=== PATIENT | male | born 1955 | race Caucasian/White ===

== ENCOUNTER 2018-09-22 07:26 | Emergency (ER) | payer BC ==
[2018-09-22] MEDS ORDERED: ORPHENADRINE CITRATE 60MG/2ML VIAL IM ONE (08:11)
[2018-09-22] MEDS ORDERED: KETOROLAC 30 MG/ML VIAL IM ONE (08:11)
--- NOTE | 2018-09-22 08:59 | Emergency Department Record ---
History of Present Illness - General Chief Complaint: Neck Injury/Pain Stated Complaint: NECK PAIN Time Seen by Provider: 09/22/18 07:51 Source: Patient Mode of Arrival: Ambulatory Limitations: No limitations - History of Present Illness Initial Comments: pt is having neck pain for 3 days. he thinks he might have slept wrong. he is unable to turn, rotate or side bend head Complaint: Neck pain Onset/Timin -: Days(s) Place: Home Severity: Moderate Severity scale (1-10): 10 Quality: Aching Improves With: None Worsens With: None Context: Direct blow - Related Data Previous Rx's Medication Instructions Recorded Cyclobenzaprine HCl [Flexeril] 10 mg PO TID #14 tablet 09/22/18 Hydrocodone/Acetaminophen [[place] 1 each PO Q6HR #10 tablet 09/22/18 5-325 Tablet] Ibuprofen [Motrin 600Mg] 600 mg PO Q6H #20 tablet 09/22/18 Allergies Allergy/AdvReac Type Severity Reaction Status Date / Time lansoprazole Allergy Intermediate RASH Verified 09/22/18 07:33 Travel Screening - Travel/Exposure Within Last 30 Days Have you traveled within the last 30 days?: No - Travel/Exposure Within Last Year Have you traveled outside the [place] in the last year?: No - Additonal Travel Details Have you been exposed to anyone with a communicable illness?: No - Travel Symptoms Symptom Screening: None Review of Systems Reviewed: No additional complaints except as noted below Constitutional: Reports: As per HPI. Denies: Chills, Fever, Malaise, Night sweats, Weakness, Weight change Eyes: Reports: As per HPI. Denies: Eye discharge, Eye pain, Photophobia, Vision change ENT: Reports: As per HPI. Denies: Congestion, Dental pain, Ear pain, Epistaxis, Hearing loss, Throat pain Respiratory: Reports: As per HPI. Denies: Cough, Dyspnea, Hemoptysis, Stridor, Wheezes Cardiovascular: Reports: As per HPI. Denies: Arrhythmia, Chest pain, Dyspnea on exertion, Edema, Murmurs, Orthopnea, Palpitations, Paroxysmal nocturnal dyspnea, Rheumatic Fever, Syncope Endocrine: Reports: As per HPI. Denies: Fatigue, Heat or cold intolerance, Polydipsia, Polyuria Gastrointestinal: Reports: As per HPI. Denies: Abdominal pain, Constipation, Diarrhea, Hematemesis, Hematochezia, Melena, Nausea, Vomiting Genitourinary: Reports: As per HPI. Denies: Dysuria, Frequency, Hematuria, Incontinence, Retention, Testicular pain, Testicular mass, Urgency Musculoskeletal: Reports: As per HPI. Denies: Arthralgia, Back pain, Gout, Joint swelling, Myalgia, Neck pain Skin: Reports: As per HPI. Denies: Bruising, Change in color, Change in hair/nails, Lesions, Pruritus, Rash Neurological: Reports: As per HPI. Denies: Abnormal gait, Confusion, Headache, Numbness, Paresthesias, Seizure, Tingling, Tremors, Vertigo, Weakness Psychiatric: Reports: As per HPI. Denies: Anxiety, Auditory hallucinations, Depression, Homicidal thoughts, Suicidal thoughts, Visual hallucinations Hematological/Lymphatic: Reports: As per HPI. Denies: Anemia, Blood Clots, Easy bleeding, Easy bruising, Swollen glands Past Medical History - SOCIAL HISTORY Smoking Status: Former smoker Alcohol Use: Rare Drug Use: None - RESPIRATORY Hx Respiratory Disorders: No - CARDIOVASCULAR Hx Cardio Disorders: Yes Hx Hypertension: Yes - NEURO Hx Neuro Disorders: No - GI Hx GI Disorders: No - Hx Genitourinary Disorders: No - ENDOCRINE Hx Endocrine Disorders: Yes Hx Diabetes: Yes - MUSCULOSKELETAL Hx Musculoskeletal Disorders: No - PSYCH Hx Psych Problems: No - HEMATOLOGY/ONCOLOGY Hx Hematology/Oncology Disorders: Yes Comment:: pancytopenia Family Medical History Any Significant Family History?: Yes Physical Exam - General General Appearance: Alert, Oriented x3, Cooperative, Mild distress - Head Head exam: Normal inspection - Eye Eye exam: Normal appearance, PERRL, EOMI Pupils: Normal accommodation - ENT ENT exam: Normal exam, Mucous membranes moist, Normal external ear exam, Normal orophraynx Ear exam: Normal external inspection. negative: External canal tenderness Nasal Exam: Normal inspection. negative: Discharge, Sinus tenderness Mouth exam: Normal external inspection, Tongue normal Teeth exam: Normal inspection. negative: Dental caries Throat exam: Normal inspection. negative: Tonsillar erythema, Tonsillar exudate - Neck Neck exam: Tenderness. negative: Full ROM - Respiratory Respiratory exam: Normal lung sounds bilaterally. negative: Respiratory distress - Cardiovascular Cardiovascular Exam: Regular rate, Normal rhythm, Normal heart sounds - GI/Abdominal GI/Abdominal exam: Soft, Normal bowel sounds. negative: Tenderness - Rectal Rectal exam: Deferred - exam: Deferred - Extremities Extremities exam: Normal inspection, Full ROM, Normal capillary refill. negative: Tenderness - Back Back exam: Reports: Normal inspection, Full ROM. Denies: Muscle spasm, Rash noted, Tenderness - Neurological Neurological exam: Alert, CN II-XII intact, Normal gait, Oriented X3 - Psychiatric Psychiatric exam: Normal affect, Normal mood - Skin Skin exam: Dry, Intact, Normal color, Warm Course Vital Signs 09/22/18 07:27 Temperature 98.2 F Pulse Rate 89 Respiratory 20 Rate Blood Pressure 185/94 Pulse Ox 95 - Reevaluation(s) Reevaluation #1: 09/22/18 09:04 pt feels better Disposition Disposition: Discharge Clinical Impression: Torticollis, acute, Cervical radicular pain Disposition: Home, Self-Care Condition: (1) Good Instructions: Spasmodic Torticollis (ED), Cervical Radiculopathy (ED) Additional Instructions: follow up with family doctor. return sooner if worse. if symptoms continue have an mri. use ice and moist heat Prescriptions: Hydrocodone/Acetaminophen [[place] 5-325 Tablet] 1 each PO Q6HR #10 tablet Cyclobenzaprine HCl [Flexeril] 10 mg PO TID #14 tablet Ibuprofen [Motrin 600Mg] 600 mg PO Q6H #20 tablet Quality - Quality Measures Quality Measures: N/A - Blood Pressure Screening Does Patient Have Any of the Following: No Blood Pressure Classification: Hypertensive Reading Systolic Measurement: 185 Diastolic Measurement: 94 Screening for High Blood Pressure: < First Hypertensive BP, F/U Documented > [G8950] First Hypertensive Follow-up Interventions: Follow-up with rescreen GT 1 day and LT 4 weeks.
--- NOTE | 2018-09-23 09:53 | RADIOLOGY REPORT ---
EXAM: CERVICAL SPINE COMPLETE HISTORY: LEFT SIDED NECK PAIN RADIATING INTO SHOULDER. NO KNOWN INJURY. TECHNIQUE: AP, lateral, latera swimmer's, both oblique and odontoid views of the cervical spine are obtained. Comparison: CT cervical spine without contrast dated 01/18/10. FINDINGS: There is normal bone mineralization. There is straightening of the normal cervical lordosis likely due to positioning or muscle spasm. Minimal anterolisthesis of C3 on C4, C4 ion C5, C5 on C6 and C6 on C7. The vertebral bodies are otherwise normal in alignment and height. No acute fracture, destructive bone lesion, or prevertebral soft tissue swelling. Mild to moderate hypertrophic degenerative changes of the atlantodental joint redemonstrated. Multilevel degenerative disk/degenerative end plate changes are present most pronounced at the C6-C7 level where they are moderate in degree. They are mild elsewhere. These findings have mildly [id number] in the interval. Multilevel uncovertebral joint spurring and facet arthropathy is present. Facet arthropathy is most pronounced on the right at the C3-C4 and C4- C5 levels. Minor left neural foraminal narrowing is suggested at the C3-C4, C5- C6 and C6-C7 levels primarily due to facet arthropathy. There is at least moderate right neural foraminal narrowing at the C3-C4 and C4-C6 levels. due to uncovertebral joint and facet joint spurring. The right neural foramina are otherwise grossly patent. Chronic soft tissue calcification is again noted posteriorly in the midline at the C4-C5 level.s, stable. IMPRESSION: 1. NO EVIDENCE OF ACUTE OSSEOUS OR LIGAMENTOUS ABNORMALITY. 2. MULTILEVEL DEGENERATIVE CHANGES, DESCRIBED ABOVE. 3. MINOR ANTEROLISTHESIS OF C3 ON C4, C4 ON C5, C5 ON C6 AND C6 ON C7 LEVELS LIKELY RELATING TO FACET ARTHROPATHY. 4. MULTILEVEL NEURAL FORAMINAL NARROWING. JOB NUMBER: [id number] [facility]
== END 2018-09-22 09:26 | disposition home or self-care (01) ==
LOC: ER 07:26
DX: M43.6 Torticollis (principal); I10 Essential (primary) hypertension
CPT/HCPCS: 99283; 96372; 99284; 72050; J1885; J2360